=== PATIENT | male | born 1990 | race Caucasian/White ===

== ENCOUNTER 2020-11-04 07:28 | Emergency (ER) | payer MEDICAID ==
[~2020-11-04] VITALS: Ht 172.7 cm; Wt 63.9 kg
[2020-11-04 07:32] VITALS: BP 146/106
--- NOTE | 2020-11-04 07:44 | NUR ---
Sharon DANIELSON at bedside to discuss POC
== END 2020-11-04 08:14 | disposition home or self-care (01) ==
LOC: ED 08:08
DX: F23 Brief psychotic disorder (principal)
CPT/HCPCS: 99281

== ENCOUNTER 2020-11-05 21:40 | Emergency (ER) | payer MEDICAID ==
[~2020-11-05] VITALS: Ht 172.7 cm; Wt 64.1 kg
[2020-11-05 21:52] VITALS: BP 117/84
--- NOTE | 2020-11-05 22:20 | NUR ---
1ST CONTACT C PT. RESTING ON CART IN NAD, STATES HE GOT THE COVID VAC 3 DAYS AGO, SHOT #1. AND NOW "IT FEELS LIKE SOMETHING IS ATTACKING MY BODY, FROM THE INSIDE" PT UNABLE TO ELABORATE. STATES HE WAS HERE YEASTERDAY ALSO. PT DENIES ANY N/V. TBS. WILL CTM.
== END 2020-11-05 23:02 | disposition left against medical advice (07) ==
LOC: ED 22:08
DX: R06.02 Shortness of breath (principal); Z53.21 Procedure and treatment not carried out due to patient leaving prior to being seen by health care provider
CPT/HCPCS: 99283

== ENCOUNTER 2020-11-06 00:25 | Emergency (ER) | payer MEDICAID ==
[~2020-11-06] VITALS: Ht 172.7 cm; Wt 63.7 kg
[2020-11-06 00:36] VITALS: BP 122/67
--- NOTE | 2020-11-06 00:50 | NUR ---
COVID VACCINATION 3DAYS AGO, STS WAS SEEN FOR FEELING UNWELL YESTERDAY. STS BREATHING FEELS A LITTLE WEIRD. "I DUNNO I CAN'T REALLY DESCRIBE IT, MAYBE I'M ANXIOUS I DON'T REALLY KNOW" PA TO BEDSIDE FOR EVAL
--- NOTE | 2020-11-06 00:53 | NUR ---
COVID SWAB AT THIS TIME
[2020-11-06 01:23] LABS: RAPID INFLUENZA A Negative (Negative); RAPID INFLUENZA B Negative (Negative)
== END 2020-11-06 01:44 | disposition home or self-care (01) ==
LOC: ED 01:21
DX: B34.9 Viral infection, unspecified (principal); Z20.822 Contact with and (suspected) exposure to COVID-19; R06.02 Shortness of breath; M79.10 Myalgia, unspecified site; R09.81 Nasal congestion
CPT/HCPCS: 71045; 87400; 99284; U0003